=== PATIENT | male | born 1960 | race Native Hawaiian/Other Pacific Islander ===

== ENCOUNTER 2016-11-19 11:02 | Day surgery (SDC) | payer OTHER ==
[~2016-11-19] VITALS: Ht 177.8 cm; Wt 69.9 kg
[2016-11-19 10:45] VITALS: BP 100/45; TEMP 98
== END 2016-11-19 13:02 | disposition home or self-care (01) ==
LOC: OR 11:02
PROC: 0W9930Z Drainage of Right Pleural Cavity with Drainage Device, Percutaneous Approach (ICD-10-PCS; principal; 2016-11-19)
DX: T85.628A Displacement of other specified internal prosthetic devices, implants and grafts, initial encounter (principal)
CPT/HCPCS: 99282; J3490

== ENCOUNTER 2017-01-19 21:34 | Outpatient (CLI) | payer OTHER ==
[2017-01-19] MEDS ORDERED: AMIT10TA21 PO (22:41)
[2017-01-19] MEDS ORDERED: NEURONTIN800 MG PO (22:41)
[2017-01-19] MEDS ORDERED: NUCYNTA ER150 MG OR (22:42)
[2017-01-19] MEDS ORDERED: MOBIC7.5 M1 PO (22:42)
[2017-01-19] MEDS ORDERED: LEVAQUIN250 MG OR (22:43)
[2017-01-19] MEDS ORDERED: GUAI600T70 PO (22:43)
[2017-01-19] MEDS ORDERED: CELEXA20 MG PO (22:44)
[2017-01-19] MEDS ORDERED: NITR0.4S2 SL (22:44)
[2017-01-19] MEDS ORDERED: SENNA LAX8.6 MG OR (22:46)
[2017-01-19] MEDS ORDERED: FERROUS SULF325 M1 OR (22:47)
[2017-01-19] MEDS ORDERED: FURO20TA67 PO (22:49)
[2017-01-19] MEDS ORDERED: OXYCODONE 20 MG/ML PO (22:51)
== END 2017-01-19 21:43 | disposition short-term general hospital (02) ==
LOC: AMB 21:34
DX: R07.89 Other chest pain (principal); R06.02 Shortness of breath; M79.602 Pain in left arm
CPT/HCPCS: A0425; A0427

== ENCOUNTER 2017-01-19 21:51 | Emergency (ER) | payer OTHER ==
[~2017-01-19] VITALS: Ht 177.8 cm; Wt 63.5 kg
[2017-01-19] MEDS ORDERED: NEURONTIN800 MG PO (22:41)
[2017-01-19] MEDS ORDERED: AMIT10TA21 PO (22:41)
[2017-01-19] MEDS ORDERED: NUCYNTA ER150 MG OR (22:42)
[2017-01-19] MEDS ORDERED: MOBIC7.5 M1 PO (22:42)
[2017-01-19] MEDS ORDERED: GUAI600T70 PO (22:43)
[2017-01-19] MEDS ORDERED: LEVAQUIN250 MG OR (22:43)
[2017-01-19] MEDS ORDERED: CELEXA20 MG PO (22:44)
[2017-01-19] MEDS ORDERED: NITR0.4S2 SL (22:44)
[2017-01-19] MEDS ORDERED: SENNA LAX8.6 MG OR (22:46)
[2017-01-19] MEDS ORDERED: FERROUS SULF325 M1 OR (22:47)
[2017-01-19] MEDS ORDERED: FURO20TA67 PO (22:49)
[2017-01-19] MEDS ORDERED: OXYCODONE 20 MG/ML PO (22:51)
[2017-01-19 23:00] VITALS: BP 94/54; TEMP 96.9
== END 2017-01-19 23:10 | disposition home or self-care (01) ==
LOC: ED 21:51
DX: R07.89 Other chest pain (principal); R06.09 Other forms of dyspnea; R94.31 Abnormal electrocardiogram [ECG] [EKG]; K21.9 Gastro-esophageal reflux disease without esophagitis; I20.8 Other forms of angina pectoris
CPT/HCPCS: 99283

== ENCOUNTER 2017-01-21 15:49 | Outpatient (CLI) | payer OTHER ==
[~2017-01-21 15:49] MED LIST: AMIT10TA21 PO; CELEXA20 MG PO; FERROUS SULF325 M1 OR; FURO20TA67 PO; GUAI600T70 PO; LEVAQUIN250 MG OR; MOBIC7.5 M1 PO; NEURONTIN800 MG PO; NITR0.4S2 SL; NUCYNTA ER150 MG OR; OXYCODONE 20 MG/ML PO; SENNA LAX8.6 MG OR
== END 2017-01-21 15:59 | disposition short-term general hospital (02) ==
LOC: AMB 15:49
DX: J44.9 Chronic obstructive pulmonary disease, unspecified (principal)
CPT/HCPCS: A0425; A0429

== ENCOUNTER 2017-01-21 17:17 | Inpatient (IN) | payer OTHER | END 2017-01-23 01:05 | disposition E | DRG 192 | LOC: MED/SURG 17:17 | DX: J44.9 Chronic obstructive pulmonary disease, unspecified (principal) | CPT/HCPCS: 94640; 94664 ==